=== PATIENT | female | born 1985 | race Caucasian/White ===

== ENCOUNTER → 2016-04-16 | Emergency (ER) | payer BC, MEDICAID ==
[~2016-04-16] VITALS: Wt 71.5 kg
[~2016-04-16] MED LIST: DOXY100T20 PO; DOXYCYCLINE 100 MG TAB PO ONE; IBUP800T25 PO; IBUPROFEN 800 MG TAB PO ONE; MISOPROSTOL 200 MCG TAB PO ONE; MISOPROSTOL 25 MCG CAPSULE PO ONE; SOD CHLORIDE 0.9% 1,000 ML IV STA
--- NOTE | 2016-04-16 22:06 | RADRPT ---
PROCEDURE: US Pelvis. CLINICAL INDICATION: Vaginal bleeding. History of retained products of conception. TECHNIQUE: Multiple sonographic images of the pelvis were obtained utilizing a transabdominal and endovaginal technique. The images were reviewed on a PACS workstation. COMPARISON: None. FINDINGS: No evidence of an intrauterine fracture in is seen. The endometrial echo complex is hetero geneous and measures 11.9 mm. There is no evidence for free fluid. A probable corpus luteum cyst is seen. The remainder of the The right ovary has a normal echotexture and measures 4 x 2.2 x 2.1 cm. The left ovary is not well visualized. No adnexal masses are noted. IMPRESSION: 1. Mildly thickened and heterogeneous endometrium. 2. No sonographic evidence for an intrauterine or extrauterine . Correlation with serial beta HCG levels may be of value as well as continued follow-up. RPTAT: HPNM Physician David Date Time Electronically viewed and signed by Physician David on 04/16/2016 22:06 /
[2016-04-16 22:28] LABS: ADD SCAN DIFF NO
[2016-04-16 22:32] LABS: BASOPHIL # 0.1 10^3/ul (0.0-0.1); BASOPHILS % 0.5 % (0.0-2.0); EOSINOPHILS # 0.3 10^3/ul (0.0-0.5); EOSINOPHILS % 2.4 % (0.0-7.0); HEMATOCRIT 40.6 % (37.0-47.0); HEMOGLOBIN 13.1 g/dl (12.0-16.0); LYMPHOCYTES % 25.3 % (15.0-51.0); MEAN CORPUSCULAR HEMOGLOBIN 28.5 pg (29.0-33.0); MEAN CORPUSCULAR HGB CONC 32.3 g/dl (32.0-37.0); MEAN CORPUSCULAR VOLUME 88.5 fl (82.0-101.0); MEAN PLATELET VOLUME 10.8 fl (7.4-10.4); MONOCYTE # 0.8 10^3/ul (0.3-0.9); MONOCYTES % 6.5 % (0.0-11.0); NEUTROPHIL # 7.7 10^3/ul (1.6-7.5); PLATELET COUNT 237 10^3/UL (140-415); RED BLOOD COUNT 4.59 10^6/ul (4.20-5.40); RED CELL DISTRIBUTION WIDTH 12.2 % (11.5-14.5); WHITE BLOOD COUNT 11.9 10^3/ul (4.8-10.8)
[2016-04-16 23:40] LABS: ADD UMIC YES; URINE BILIRUBIN (Dip) NEGATIVE (NEGATIVE); URINE BLOOD (Dip) 3+ (NEGATIVE); URINE COLOR LT. YELLOW (YELLOW); URINE GLUCOSE (Dip) NEGATIVE (NEGATIVE); URINE KETONES (Dip) NEGATIVE (NEGATIVE); URINE LEUKOCYTE ESTERASE (Dip) NEGATIVE (NEGATIVE); URINE NITRITE (Dip) NEGATIVE (NEGATIVE); URINE TOTAL PROTEIN (Dip) NEGATIVE (NEGATIVE); URINE UROBILINOGEN (Dip) 0.2 E.U./dL (0.1-1.0)
[2016-04-16 23:57] LABS: URINE RBCS >200 /HPF (0)
[2016-04-16 23:58] LABS: SQUAMOUS EPITHELIAL CELL,UR FEW
[2016-04-17 00:31] VITALS: BP 117/55; PULSE 66; RESP 18; TEMP 98.7
--- NOTE | 2016-04-17 01:27 | ERD ---
ER Documentation Chief Complaint Date/Time DATE: 04/17/16 TIME: 01:13 Chief Complaint vag bleed x 3 days. states 12 weeks HPI Pleasant 31-year-old female presents to emergency department today with has been with reports of vaginal bleeding. Patient reports that vaginal bleeding started 3 days ago and that she is approximately 12 weeks . Last menstrual period January 15, 2016. Patient states that she was discharged from [facility] yesterday with a diagnosis of threatened miscarriage, she did have lab work and ultrasound done; confirmed . Patient was seen in [facility] office today, Dr. Jacob Jacques. Patient's reports that she had another ultrasound done and blood tests done. Patient's appointment was later in the day and the laboratory results were pending when they left the office. Patient's physician instructed them to come to [facility] where she is the labor wrist change person tonight if symptoms changed. Patient reports that she started to have increased vaginal bleeding, reports saturating 5 peripads today, blood is dark red with clots, patient reports back and pelvis pain worse this morning than now. Pain is 5/10 on pain scale. Nurse practitioner maintains active listening. Family is Greven but consolable eager to find out about viability of . ROS All systems reviewed and are negative except as per history of present illness. Allergies Allergies: Coded Allergies: Penicillins (Verified Allergy, Unknown, HIVES/RASH, 05/04/09) Uncoded Allergies: PORK (Allergy, Mild, SWELLING OF LIPS/REDNESS ON BODY, 05/04/09) PMhx/Soc Medical and Surgical Hx: pt denies Medical Hx, pt denies Surgical Hx History of Surgery: No Anesthesia Reaction: No Hx Neurological Disorder: No Hx Respiratory Disorders: No Hx Cardiac Disorders: No Hx Psychiatric Problems: No Hx Miscellaneous Medical Probl: No Hx Alcohol Use: No Hx Substance Use: No Hx Tobacco Use: No Smoking Status: Never smoker Physical Exam Vitals Vital Signs Date Time Temp Pulse Resp B/P Pulse Ox O2 Delivery O2 Flow Rate FiO2 04/17/16 00:31 98.7 66 18 117/55 100 Room Air 04/16/16 20:08 98.3 74 20 103/58 100 Physical Exam Const: [] Head: Atraumatic Eyes: Normal Conjunctiva ENT: Normal External Ears, Nose and Mouth. Neck: Full range of motion..~ No meningismus. Resp: Clear to auscultation bilaterally Cardio: Regular rate and rhythm, no murmurs Abd: Soft, non tender, non distended. Normal bowel sounds Skin: No petechiae or rashes Back: No midline or flank tenderness Ext: No cyanosis, or edema Neur: Awake and alert Psych: Normal Mood and Affect Result Diagram: 04/16/160 Results 24 hrs Laboratory Tests Test 04/16/16 22:05 04/16/16 22:16 Basophils # 0.110^3/ul Basophils % 0.5% Beta HCG, Quantitative 2198.4mIU/ml Eosinophils # 0.310^3/ul Eosinophils % 2.4% Hematocrit 40.6% Hemoglobin 13.1g/dl Lymphocytes # 3.010^3/ul Lymphocytes % 25.3% Mean Corpuscular Hemoglobin 28.5pg Mean Corpuscular Hemoglobin Concent 32.3g/dl Mean Corpuscular Volume 88.5fl Mean Platelet Volume 10.8fl Monocytes # 0.810^3/ul Monocytes % 6.5% Neutrophils # 7.710^3/ul Neutrophils % 65.0% Nucleated Red Blood Cells # 0.010^3/ul Nucleated Red Blood Cells % 0.0/100WBC Platelet Count 57626^3/UL Red Blood Count 4.5910^6/ul Red Cell Distribution Width 12.2% White Blood Count 11.910^3/ul Urine Bilirubin NEGATIVE Urine Clarity CLEAR Urine Color LT. YELLOW Urine Glucose NEGATIVE% Urine Hemoglobin 3+ Urine Ketones NEGATIVE Urine Leukocyte Esterase NEGATIVE Urine Microscopic RBC >200/HPF Urine Microscopic WBC 2-5/HPF Urine Nitrite NEGATIVE Urine Specific [place] 1.020 Urine Squamous Epithelial Cells FEW Urine Total Protein NEGATIVE Urine Urobilinogen 0.2 E.U./dL Urine pH 6.5 Current Medications Medications (Trade) Dose Ordered Sig/Ralph Route PRN Reason Start Time Stop Time Status Last Admin Dose Admin Sodium Chloride (NS) 1,000 ml @ 1,000 mls/hr Q1H STAT IV 04/16/16 21:11 04/16/16 22:10 DC 04/16/16 21:11 Misoprostol (Cytotec 25 Mcg Capsule) 400 mcg ONCE ONCE PO 04/17/16 00:00 04/17/16 00:01 Cancel Misoprostol (Cytotec) 400 mcg ONCE ONCE PO 04/17/16 00:30 04/17/16 00:31 DC 04/17/16 00:46 Doxycycline Hyclate (Vibramycin) 100 mg ONCE ONCE PO 04/17/16 00:30 04/17/16 00:31 DC 04/17/16 00:46 Ibuprofen (Motrin) 800 mg ONCE ONCE PO 04/17/16 00:30 04/17/16 00:31 DC 04/17/16 00:45 Interpretation text CBC shows no evidence of hemorrhage or infection Beta hCG over 2000 Procedures/MDM PROCEDURE: US Pelvis. CLINICAL INDICATION: Vaginal bleeding. History of retained products of conception. TECHNIQUE: Multiple sonographic images of the pelvis were obtained utilizing a transabdominal and endovaginal technique. The images were reviewed on a PACS workstation. COMPARISON: None. FINDINGS: No evidence of an intrauterine fracture in is seen. The endometrial echo complex is heterogeneous and measures 11.9 mm. There is no evidence for free fluid. A probable corpus luteum cyst is seen. The remainder of the The right ovary has a normal echotexture and measures 4 x 2.2 x 2.1 cm. The left ovary is not well visualized. No adnexal masses are noted. IMPRESSION: 1. Mildly thickened and heterogeneous endometrium. 2. No sonographic evidence for an intrauterine or extrauterine . Correlation with serial beta HCG levels may be of value as well as continued follow-up. RPTAT: HPNM Physician David Date Time Electronically viewed and signed by Physician David on 04/16/2016 22 :06 Pleasant 31-year-old female presents to emergency department today with threatened miscarriage, saturating 5 peripads, dark blood and clots. Patient has been seen by sheet metal engineer Dr.Sedi Jacques; physician is change person glabrous today in hospital, nurse practitioner called discussed case, repeat laboratory testing, U hCG and ultrasound ordered. Ultrasound rules out any intrauterine . Beta hCG 1999, physician reports that beta hCG was 4000 and office earlier today. Patient placed in [facility] evaluation room in emergency department, physician comes to examine patient, performed pelvic exam, collects products of conception to send to pathology. Patient received 400 g of Cytotec's before discharge, 100 mg doxycycline and 800 mg of Motrin. Patient will continue doxycycline twice daily 4 days, and be sent home with a prescription of Motrin. Patient will follow up with sheet metal engineer next Saturday, April 25, 2016. I feel the patient is stable for discharge at this time. I have discussed results, examination findings, the treatment plan with the patient and family present prior to discharge. Strict indications for emergent reevaluation such as pelvic pain, and bleeding, side effects of medication were also discussed. All questions were answered. Patient verbalizes understanding and agrees with plan of care. Departure Diagnosis: Primary Impression: Vaginal bleeding Additional Impression: Spontaneous Condition: Good Patient Instructions: Miscarriage, Spontaneous (Completed) Additional Instructions: Thank you for for coming to [facility] for your care today. Please ask your nurse or provider if you have questions about your care today and do not leave until all your questions have been answered. Please use any medications given as directed and follow-up with your doctor (or the doctor you were referred to) in the next 2-3 days. If you do not have a primary care doctor you may follow up at the [facility] (listed below). You may also use motrin and tylenol as needed for fever and/or pain unless instructed otherwise by your provider or nurse. Indications for more urgent follow-up have been discussed, but you may return to the Emergency Department at ANY time for any worrisome or worsening symptoms. If you have abdominal pain, please know that no test or exam you received is perfect and you should follow up within 8 hours for continued pain. If you had any imaging studies today, such as an X-Ray or CT Scan, these studies will be reviewed later by a radiologist. You will be called if there are important findings that were not identified today, so make sure the contact information you provided at registration is correct. If you received any narcotic pain control medicine today, such as Vicodin, Morphine or Dilaudid, your coordination and judgment may be affected for a number of hours. Please do not drive or operate heavy machinery, and you may want someone to assist you at home. If you were given a prescription for narcotic medication, be aware that it is very addictive- use sparingly and only if necessary. MERI GALEANO Apr 17, 2016 01:25
--- NOTE | 2016-04-17 04:42 | CONS ---
DATE OF ADMISSION: 04/16/2016 DATE OF CONSULTATION: 04/16/2016 Dear Pura Michelle, nurse practitioner. Thank you very much for allowing me to participate in the care of your patient. HISTORY OF PRESENT ILLNESS: As you know, she is a pleasant 31-year-old 4, para 3-0-0-3, wit h single intrauterine at ____ weeks complaining of heavy vaginal bleeding with clot passin g and possible tissue passing. She was seen in my office this morning and no heavy vaginal bleeding was noted. Ultrasound was performed which revealed a low gestational age weight yolk sac and small echogenic ____ possible pole without heart rate. Both ovaries were normal. She also w as seen at ____ Emergency Department on 04/15/2016 with the same complaint. At that time, her beta hCG was more than 4000 international units. Beta hCG here performed was approximated 1999. PAST MEDICAL HISTORY: None. PAST SURGICAL HISTORY: None. PAST OBSTETRICAL HISTORY: 4, para 3-0-0-3, with 3 vaginal deliveries. FAMILY HISTORY: Negative. She denies breast, uterine, ovarian or colon cancer in her family. SOCIAL HISTORY: She is . She denies tobacco, alcohol or drug use. ALLERGIES: NO KNOWN DRUG ALLERGIES. MEDICATIONS: vitamin. PHYSICAL EXAMINATION: VITAL SIGNS: Blood pressure 110/67, pulse rate 78/minute, respiratory rate 16/minute, temperature 9 7.8. GENERAL: Comfortable, no acute distress, appropriate mood and affect. HEART: Regular rhythm and rate. LUNGS: Clear to auscultation. ABDOMEN: Soft, nontender. No organomegaly. FLANKS: No CVA tenderness bilateral. EXTREMITIES: No edema, thigh or calf tenderness bilateral. Homans sign is negative. PELVIC: External genitalia. There is dried and fresh blood on vulva and inner thigh. Vagina: Ther e is moderate bleeding with some tissue which was removed by ring forceps and sent to pathology. Ce rvix: Multiparous, no lesions seen. Uterus: 8 weeks, mobile and nontender. Adnexa: No palpable masses bilaterally. IMAGING: Ultrasound revealed a mildly thickened and heterogenous endometrium. No sonographic evide nce of intrauterine or extrauterine . Left ovary was not seen. Right ovary 4 x 22.2 x 2.1 cm. ASSESSMENT AND PLAN: A 31-year-old, 4, para 3-0-1-3 with incomplete . She is hemod ynamically stable. Some products of conception were removed from the vagina and sent to pathology. Cytotec 400 mcg with Motrin 800 mg p.o. given. She was discharged home on doxycycline 100 mg b.i.d . for 3 days and Motrin 800 mg every 8 hours p.r.n. She will have followup in 1 week with her primary [facility] [employer] [employer]. I have discussed with the patient and her if she continues to have severe vaginal bleeding, she needs to make an appointment with her own [facility] [employer] or come to the emergency department. They expr essed understanding. All of their questions were answered. Repeat beta hCG and ultrasound in 1 arlettespencer garcia Dictated By: SHAJI DIANA/LEILANI Conf#: [id number] DID#: [id number]
== END | disposition home or self-care (01) ==
LOC: FTE 19:41
DX: O03.9 Complete or unspecified spontaneous abortion without complication (principal)
CPT/HCPCS: 36415; 76801; 76817; 81001; 84702; 85025; 86900; 86901; 99285; J7030; 81003